=== PATIENT | female | born 1965 | race Hispanic/Latino ===

== ENCOUNTER 2017-08-19 08:48 | Day surgery (SDC) | payer MEDICARE ==
[2017-08-15 09:18] VITALS: BP 138/73
[2017-08-15 09:24] LABS: BASOPHILS % (AUTO) 0.9 % (0.0-5.0); EOSINOPHILS % (AUTO) 5.2 % (0.0-8.0); HEMATOCRIT 37.3 % (36-48); LYMPHOCYTES % (AUTO) 17.1 % (21.0-51.0); MEAN CORPUSCULAR HEMOGLOBIN 32.9 pg (27.0-33.0); MEAN CORPUSCULAR HGB CONC 34.6 g/dL (32.0-36.0); MEAN CORPUSCULAR VOLUME 95.3 fL (79-99); MONOCYTES % (AUTO) 5.1 % (3.0-13.0); NEUTROPHILS % (AUTO) 71.7 % (40.0-77.0); PLATELET COUNT (AUTO) 205 K/uL (130-400); RED BLOOD CELL COUNT(AUTO) 3.91 MIL/uL (4.00-5.50); RED CELL DISTRIBUTION WIDTH 13.9 % (11.0-15.5); WHITE BLOOD COUNT (AUTO) 12.9 K/uL (4.8-10.8)
[2017-08-15 09:34] LABS: POTASSIUM 3.2 mmol/L (3.5-5.1)
[2017-08-15 09:34] LABS: APPEARANCE,URINE Clear (CLEAR); BILIRUBIN,URINE Negative (NEGATIVE); COLOR,URINE Yellow (YELLOW); GLUCOSE, URINE (UA) Negative (NEGATIVE); KETONES,URINE Negative (NEGATIVE); LEUKOCYTE ESTERASE ,URINE Negative (NEGATIVE); NITRATE,URINE Negative (NEGATIVE); OCCULT BLOOD,URINE Negative (NEGATIVE); PROTEIN,URINE POS 2+ (NEGATIVE)
[2017-08-15 09:44] LABS: INR 0.97 (0.85-1.15); PARTIAL THROMBOPLASTIN TIME 27.2 SEC (26.3-35.5); PROTHROMBIN TIME 10.2 SEC (9.6-11.6)
[2017-08-15 09:46] LABS: BACTERIA,URINE Rare /HPF (None Seen); RBC,URINE None Seen /HPF (0-1); WBC,URINE 0-1 /HPF (0-1)
[~2017-08-19] VITALS: Ht 157.5 cm; Wt 94.5 kg
[2017-08-19] VITALS (10 sets, daily range): BP systolic 118–184; BP diastolic 66–87
[~2017-08-19 08:48] MED LIST: ACETAMINOPHEN 325 MG TAB PO PRN; AMLO5TAB2 PO; ASPI-1026 PO; DESVENLAFAXINE PO; HYDR25TA PO; LORA10TA7 PO; LOSA100T29 PO; METF500T6 PO; METOPROLOL ER PO; PRAV10TA39 PO; SODIUM CHLORIDE 0.9% 500ML 500 ML IV SCH; TOPI25TA42 PO
[2017-08-19 10:16] LABS: CREATININE 1.1 mg/dL (0.5-1.5); POTASSIUM 3.6 mmol/L (3.5-5.1)
[2017-08-19] MEDS ORDERED: SODIUM CHLORIDE 0.9% 1000ML 1,000 ML IV ONE (10:18)
[2017-08-19] MEDS ORDERED: NITROGLYCERIN 5 MG/ML 10 ML VIAL IV ONE (14:48)
[2017-08-19] MEDS ORDERED: HEPARIN SODIUM 1000UNIT/ML 10ML VIAL ONE (14:48)
[2017-08-19] MEDS ORDERED: IOHEXOL 350 MG/ML 100ML INFUS..BTL IV ONE (14:49)
[2017-08-19] MEDS ORDERED: IOHEXOL-350 50ML VIAL IV ONE (14:49)
[2017-08-19] MEDS ORDERED: LIDOCAINE HCL-MPF 2% 5ML VIAL ONE (15:00)
[2017-08-19] MEDS ORDERED: MIDAZOLAM HCL 1 MG/ML 2ML VIAL ONE (15:05)
[2017-08-19] MEDS ORDERED: MEPERIDINE-PF 25 MG/ML SYG ONE (15:05)
[2017-08-19] MEDS ORDERED: PANT40TA25 PO (15:29)
[2017-08-19] MEDS ORDERED: DEXTROSE 50%-WATER 50 ML DISP.SYRIN IV PRN (15:30)
[2017-08-19] MEDS ORDERED: SODIUM CHLORIDE 0.9% 10 ML VIAL IVP SCH (15:30)
[2017-08-19] MEDS ORDERED: GLUCAGON 1MG KIT 1 MG ML IM PRN (15:30)
[2017-08-19] MEDS ORDERED: INSULIN HUMULIN R 100 UNIT/ML 3ML SQ SCH (16:30)
== END 2017-08-19 20:00 | disposition home or self-care (01) ==
LOC: DAH 08:48
PROVIDERS: ATTEND Internal Medicine Cardiovascular Disease
DX: I20.8 Other forms of angina pectoris (principal); I11.0 Hypertensive heart disease with heart failure; I50.32 Chronic diastolic (congestive) heart failure; E11.9 Type 2 diabetes mellitus without complications; E78.5 Hyperlipidemia, unspecified; E66.9 Obesity, unspecified; F41.9 Anxiety disorder, unspecified; F32.9 Major depressive disorder, single episode, unspecified; Z79.899 Other long term (current) drug therapy; Z68.36 Body mass index [BMI] 36.0-36.9, adult; G45.9 Transient cerebral ischemic attack, unspecified
CPT/HCPCS: 36415 ×2; 71045; 80048 ×2; 81001; 82948; 85025; 85610; 85730; 93005; 93458; A4606; C1760; C1894; J1644; J2175; J2250; J3490 ×2; J7030; Q9965; Q9967 ×2; 99156; 99157

== ENCOUNTER 2019-12-22 10:25 | Emergency (ER) | payer OTHER, MEDICARE ==
[~2019-12-22 10:25] MED LIST changes: -ACETAMINOPHEN 325 MG TAB PO PRN; +AMLO-257 PO; -AMLO5TAB2 PO; -LOSA100T29 PO; +LOSA100T58 PO; +METF-444 PO; -METF500T6 PO; +PANT40TA55 PO; -SODIUM CHLORIDE 0.9% 500ML 500 ML IV SCH
[2019-12-22] MEDS ORDERED: ASPIRIN 325 MG TABLET PO ONE (10:26)
[2019-12-22] MEDS ORDERED: LIDOCAINE 5% TOPICAL PATCH TP ONE (10:26)
[2019-12-22 11:54] LABS: BASOPHILS % (AUTO) 0.4 % (0.0-5.0); EOSINOPHILS % (AUTO) 2.2 % (0.0-8.0); HEMATOCRIT 38.7 % (36-48); LYMPHOCYTES % (AUTO) 17.4 % (21.0-51.0); MEAN CORPUSCULAR HEMOGLOBIN 31.5 pg (27.0-33.0); MEAN CORPUSCULAR HGB CONC 33.6 g/dL (32.0-36.0); MEAN CORPUSCULAR VOLUME 93.7 fL (79-99); MONOCYTES % (AUTO) 4.5 % (3.0-13.0); NEUTROPHILS % (AUTO) 75.1 % (40.0-77.0); PLATELET COUNT (AUTO) 242 K/uL (130-400); RED BLOOD CELL COUNT(AUTO) 4.13 MIL/uL (4.00-5.50); RED CELL DISTRIBUTION WIDTH 12.8 % (11.0-15.5); WHITE BLOOD COUNT (AUTO) 9.1 K/uL (4.8-10.8)
[2019-12-22 12:05] LABS: CREATININE 1.3 mg/dL (0.5-1.5); POTASSIUM 3.1 mmol/L (3.5-5.1)
[2019-12-22 12:08] LABS: INR 0.99 (0.85-1.15); PARTIAL THROMBOPLASTIN TIME 25.9 SEC (26.3-35.5); PROTHROMBIN TIME 10.7 SEC (9.6-11.6)
[2019-12-22 12:09] LABS: ALBUMIN 3.7 g/dL (3.5-5.0); BILIRUBIN,TOTAL 0.3 mg/dL (0.2-1.0); TOTAL PROTEIN, SERUM 7.6 g/dL (6.0-8.3)
[2019-12-22] MEDS ORDERED: POTASSIUM CHLORIDE 20 MEQ ERTAB PO ONE (12:53)
[2019-12-22] MEDS ORDERED: IBUPROFEN 600 MG TABLET ONE (12:56)
== END 2019-12-22 16:03 | disposition home or self-care (01) ==
LOC: EDH 10:25
DX: S29.011A Strain of muscle and tendon of front wall of thorax, initial encounter (principal); X58.XXXA Exposure to other specified factors, initial encounter; Y93.89 Activity, other specified; Y92.89 Other specified places as the place of occurrence of the external cause; Y99.8 Other external cause status
CPT/HCPCS: 36415; 71045; 80053; 82550; 83690; 83880; 84484; 85025; 85610; 85730; 93005

== ENCOUNTER 2020-02-12 13:17 | Inpatient (IN) | payer OTHER, MEDICARE ==
[~2020-02-12] VITALS: Ht 167.6 cm; Wt 85.3 kg
[2020-02-12 13:48] LABS: ABG BASE EXCESS -4.7 mmol/L (-2.0-3.0); ABG HCO3 18.2 mmol/L (21.0-28.0); ABG OXYGEN SATURATION 91.2 % (95.0-99.0); ABG PCO2 29 mmHg (32-45)
[2020-02-12] MEDS ORDERED: ACETAMINOPHEN-CODEINE 300/30MG TAB ONE (14:14)
[2020-02-12] MEDS ORDERED: AZITHROMYCIN 250 MG TABLET PO ONE (14:14)
[2020-02-12] MEDS ORDERED: CEFTRIAXONE SODIUM 1 GM ONE (14:14)
[2020-02-12] MEDS ORDERED: DEXAMETHASONE SOD PHOSPHATE 10MG/ML 1ML VIAL ONE (14:14)
[2020-02-12] MEDS ORDERED: ASPIRIN 325 MG TABLET ONE (14:14)
[2020-02-12] MEDS ORDERED: SODIUM CHLORIDE 0.9% 500ML 500 ML IV ONE (14:15)
[2020-02-12] MEDS ORDERED: ALBUTEROL INHALER 90MCG/INH IH ONE (14:47)
[2020-02-12 14:58] LABS: BASOPHILS % (AUTO) 0.1 % (0.0-5.0); EOSINOPHILS % (AUTO) 0.3 % (0.0-8.0); HEMATOCRIT 38.2 % (36-48); LYMPHOCYTES % (AUTO) 7.5 % (21.0-51.0); MEAN CORPUSCULAR HEMOGLOBIN 31.7 pg (27.0-33.0); MEAN CORPUSCULAR HGB CONC 34.3 g/dL (32.0-36.0); MEAN CORPUSCULAR VOLUME 92.5 fL (79-99); MONOCYTES % (AUTO) 4.7 % (3.0-13.0); NEUTROPHILS % (AUTO) 86.8 % (40.0-77.0); PLATELET COUNT (AUTO) 170 K/uL (130-400); RED BLOOD CELL COUNT(AUTO) 4.13 MIL/uL (4.00-5.50); RED CELL DISTRIBUTION WIDTH 13.2 % (11.0-15.5); WHITE BLOOD COUNT (AUTO) 8.7 K/uL (4.8-10.8)
[2020-02-12 15:19] LABS: INR 0.96 (0.85-1.15); PROTHROMBIN TIME 10.3 SEC (9.6-11.6)
[2020-02-12 15:21] LABS: PARTIAL THROMBOPLASTIN TIME 31.6 SEC (26.3-35.5)
[2020-02-12 17:00] LABS: ALBUMIN 2.8 g/dL (3.5-5.0); BILIRUBIN,TOTAL 0.2 mg/dL (0.2-1.0); CREATININE 1.1 mg/dL (0.5-1.5); POTASSIUM 3.4 mmol/L (3.5-5.1); TOTAL PROTEIN, SERUM 7.1 g/dL (6.0-8.3)
[2020-02-13] MEDS ORDERED: AZITHROMYCIN 500MG+NS 250ML 250 ML IV ONE (01:50)
[2020-02-13] MEDS ORDERED: CEFTRIAXONE SODIUM 1 GM ONE (01:50)
[2020-02-13 03:58] LABS: BASOPHILS % (AUTO) 0.1 % (0.0-5.0); LYMPHOCYTES % (AUTO) 8.4 % (21.0-51.0); MEAN CORPUSCULAR HEMOGLOBIN 31.3 pg (27.0-33.0); MEAN CORPUSCULAR HGB CONC 33.9 g/dL (32.0-36.0); MEAN CORPUSCULAR VOLUME 92.3 fL (79-99); MONOCYTES % (AUTO) 3.6 % (3.0-13.0); NEUTROPHILS % (AUTO) 87.3 % (40.0-77.0); PLATELET COUNT (AUTO) 160 K/uL (130-400); RED CELL DISTRIBUTION WIDTH 13.2 % (11.0-15.5); WHITE BLOOD COUNT (AUTO) 8.7 K/uL (4.8-10.8)
[2020-02-13 04:09] LABS: CREATININE 1.2 mg/dL (0.5-1.5); POTASSIUM 4.1 mmol/L (3.5-5.1)
[2020-02-13 04:14] LABS: ALBUMIN 2.6 g/dL (3.5-5.0); BILIRUBIN,TOTAL 0.2 mg/dL (0.2-1.0); TOTAL PROTEIN, SERUM 6.9 g/dL (6.0-8.3)
[2020-02-13] MEDS ORDERED: ACETAMINOPHEN 325 MG TAB ONE (04:49)
[2020-02-13] MEDS ORDERED: ONDANSETRON HCL 4 MG/2 ML VIAL IVP PRN (08:15)
[2020-02-13] MEDS ORDERED: ALBUTEROL INHALER 90MCG/INH IH PRN (08:45)
[2020-02-13] MEDS ORDERED: PANTOPRAZOLE SODIUM 40 MG TABLET.DR ONE (08:55)
[2020-02-13] MEDS ORDERED: AMLODIPINE BESYLATE 5 MG TAB ONE (08:55)
[2020-02-13] MEDS ORDERED: LOSARTAN 50 MG TABLET ONE (08:56)
[2020-02-13] MEDS ORDERED: HYDROCHLOROTHIAZIDE 25 MG TABLET ONE (08:56)
[2020-02-13] MEDS ORDERED: LORATADINE 10 MG TABLET ONE (08:56)
[2020-02-13] MEDS: LORATADINE 10 MG TABLET PO SCH (09:00)
[2020-02-13] MEDS ORDERED: SIMVASTATIN 10 MG TABLET PO SCH (09:00)
[2020-02-13] MEDS: ASPIRIN 81MG TAB.CHEW PO SCH (09:00)
[2020-02-13] MEDS: TOPIRAMATE 25 MG TABLET PO SCH (09:00)
[2020-02-13] MEDS: ENOXAPARIN SODIUM 40 MG/0.4 ML SYRINGE SQ SCH ×2 (09:00→21:00)
[2020-02-13] MEDS: AMLODIPINE BESYLATE 5 MG TAB PO SCH (09:00)
[2020-02-13] MEDS: METOPROLOL TARTRATE 25 MG TAB PO SCH ×2 (09:00→21:00)
[2020-02-13] MEDS: LOSARTAN 100 MG TABLET PO SCH (09:00)
[2020-02-13] MEDS: PANTOPRAZOLE SODIUM 40 MG TABLET.DR PO SCH (09:00)
[2020-02-13] MEDS: HYDROCHLOROTHIAZIDE 25 MG TABLET PO SCH (09:00)
[2020-02-13] MEDS ORDERED: PHARMACY COMMUNICATION MISC SCH (09:30)
[2020-02-13 11:56] LABS: APPEARANCE,URINE Clear (CLEAR); BILIRUBIN,URINE Negative (NEGATIVE); COLOR,URINE Yellow (YELLOW); GLUCOSE, URINE (UA) Negative (NEGATIVE); KETONES,URINE Negative (NEGATIVE); LEUKOCYTE ESTERASE ,URINE Trace (NEGATIVE); NITRATE,URINE Negative (NEGATIVE); OCCULT BLOOD,URINE Negative (NEGATIVE); PH,URINE 6.5 (5.0-8.0); PROTEIN,URINE POS 2+ mg/dL (NEGATIVE); UROBILINOGEN,URINE 0.2 mg/dL (0.2-1.0)
[2020-02-13 12:12] LABS: BACTERIA,URINE Rare /HPF (None Seen); RBC,URINE 0-1 /HPF (0-1); SQUAMOUS EPITHELIAL CELL,UR Few /HPF (0-2); WBC,URINE 0-1 /HPF (0-1)
[2020-02-13 13:26] LABS: CRP QUANTITATIVE 169.1 mg/L (0.00-9.0)
[2020-02-13] MEDS ORDERED: COMPOUND IV REFRIGERATED 1 EACH IVSOLN MISC PRN (14:00)
[2020-02-13] MEDS ORDERED: REMDESIVIR (EUA) 520 200 MG in SODIUM CHLORIDE 0.9% 250 ML IV ONE (14:00)
[2020-02-13] MEDS ORDERED: ENOXAPARIN SODIUM 40 MG/0.4 ML SYRINGE SQ ONE (21:39)
[2020-02-13] MEDS ORDERED: DRONABINOL 2.5 MG CAP ONE (21:40)
[2020-02-13] MEDS ORDERED: METOPROLOL TARTRATE 25 MG TAB ONE (21:40)
[2020-02-14] MEDS ORDERED: ACETAMINOPHEN 325 MG TAB ONE (03:58)
[2020-02-14] MEDS ORDERED: PHARMACY COMMUNICATION MISC SCH (06:00)
[2020-02-14 07:33] LABS: ABG BASE EXCESS -2.1 mmol/L (-2.0-3.0); ABG OXYGEN SATURATION 95.2 % (95.0-99.0); ABG PCO2 36 mmHg (32-45)
[2020-02-14 07:37] LABS: HEMATOCRIT 36.3 % (36-48); MEAN CORPUSCULAR HEMOGLOBIN 30.7 pg (27.0-33.0); MEAN CORPUSCULAR HGB CONC 32.8 g/dL (32.0-36.0); MEAN CORPUSCULAR VOLUME 93.6 fL (79-99); RED BLOOD CELL COUNT(AUTO) 3.88 MIL/uL (4.00-5.50); RED CELL DISTRIBUTION WIDTH 13.1 % (11.0-15.5); WHITE BLOOD COUNT (AUTO) 13.2 K/uL (4.8-10.8)
[2020-02-14 07:52] LABS: POTASSIUM 3.2 mmol/L (3.5-5.1)
[2020-02-14] MEDS ORDERED: ASPIRIN 81MG TAB.CHEW ONE (07:54)
[2020-02-14] MEDS ORDERED: AMLODIPINE BESYLATE 5 MG TAB ONE (07:54)
[2020-02-14] MEDS ORDERED: DEXAMETHASONE SOD PHOSPHATE 10MG/ML 1ML VIAL ONE (07:54)
[2020-02-14] MEDS ORDERED: AZITHROMYCIN 500MG+NS 250ML 250 ML IV ONE (07:55)
[2020-02-14] MEDS ORDERED: ENOXAPARIN SODIUM 40 MG/0.4 ML SYRINGE SQ ONE (07:55)
[2020-02-14] MEDS ORDERED: CEFTRIAXONE SODIUM 1 GM ONE (07:55)
[2020-02-14] MEDS ORDERED: METOPROLOL TARTRATE 25 MG TAB ONE (07:56)
[2020-02-14] MEDS ORDERED: HYDROCHLOROTHIAZIDE 25 MG TABLET ONE (07:56)
[2020-02-14] MEDS ORDERED: LORATADINE 10 MG TABLET ONE (07:56)
[2020-02-14] MEDS ORDERED: LOSARTAN 50 MG TABLET ONE (07:56)
[2020-02-14] MEDS ORDERED: DRONABINOL 2.5 MG CAP ONE (07:57)
[2020-02-14] MEDS: DEXAMETHASONE SOD PHOSPHATE 4 MG/ML 1ML VIAL IVP SCH ×2 (08:15→21:36)
[2020-02-14] MEDS ORDERED: LIDOCAINE HCL-MPF 1% 2ML VIAL IV PRN (08:45)
[2020-02-14] MEDS ORDERED: POTASSIUM CHLORIDE 20 MEQ ERTAB PO PRN (08:45)
[2020-02-14] MEDS ORDERED: GLUCAGON 1MG KIT 1 MG ML IM PRN (08:45)
[2020-02-14] MEDS ORDERED: POTASSIUM CHLORIDE 10% ELIXIR 20 MEQ/15 ML UDCUP PO PRN (08:45)
[2020-02-14] MEDS ORDERED: DEXTROSE 50%-WATER 50 ML DISP.SYRIN IV PRN (08:45)
[2020-02-14] MEDS ORDERED: POTASSIUM CHLORIDE 20MEQ/100ML 100 ML IV PRN (08:45)
[2020-02-14] MEDS: LOSARTAN 100 MG TABLET PO SCH (09:00)
[2020-02-14] MEDS: AZITHROMYCIN 500MG+NS 250ML 250 ML IV SCH (09:00)
[2020-02-14] MEDS: DRONABINOL 2.5 MG CAP PO SCH ×3 (09:00→21:47)
[2020-02-14] MEDS: CEFTRIAXONE SODIUM 1 GM IVP SCH (09:00)
[2020-02-14] MEDS: TOPIRAMATE 25 MG TABLET PO SCH (09:00)
[2020-02-14] MEDS: METOPROLOL TARTRATE 25 MG TAB PO SCH ×2 (09:00→21:46)
[2020-02-14] MEDS: LORATADINE 10 MG TABLET PO SCH (09:00)
[2020-02-14] MEDS: AMLODIPINE BESYLATE 5 MG TAB PO SCH (09:00)
[2020-02-14] MEDS: ENOXAPARIN SODIUM 40 MG/0.4 ML SYRINGE SQ SCH ×2 (09:00→21:46)
[2020-02-14] MEDS: ASPIRIN 81MG TAB.CHEW PO SCH (09:00)
[2020-02-14] MEDS: HYDROCHLOROTHIAZIDE 25 MG TABLET PO SCH (09:00)
[2020-02-14] MEDS: PANTOPRAZOLE SODIUM 40 MG TABLET.DR PO SCH (09:00)
[2020-02-14 13:42] LABS: ALBUMIN 2.6 g/dL (3.5-5.0); BILIRUBIN,DIRECT 0.1 mg/dL (0.0-0.3); BILIRUBIN,TOTAL 0.3 mg/dL (0.2-1.0); TOTAL PROTEIN, SERUM 6.2 g/dL (6.0-8.3)
[2020-02-14] MEDS: REMDESIVIR (EUA) 520 100 MG in SODIUM CHLORIDE 0.9% 250 ML IV SCH (14:00)
[2020-02-14 18:10] VITALS: BP 130/78
[2020-02-14 19:58] VITALS: BP 121/77
[2020-02-14] MEDS: ACETAMINOPHEN 325 MG TAB PO PRN (22:36)
[2020-02-14 23:45] VITALS: BP 121/66
[2020-02-15 03:24] VITALS: BP 121/65
[2020-02-15] MEDS: GUAIFENESIN-DM 200/20 MG 10 ML PO PRN ×2 (05:00→13:03)
[2020-02-15 05:07] LABS: MEAN CORPUSCULAR HEMOGLOBIN 30.9 pg (27.0-33.0); MEAN CORPUSCULAR HGB CONC 33.8 g/dL (32.0-36.0); MEAN CORPUSCULAR VOLUME 91.4 fL (79-99); RED BLOOD CELL COUNT(AUTO) 4.05 MIL/uL (4.00-5.50); RED CELL DISTRIBUTION WIDTH 12.7 % (11.0-15.5); WHITE BLOOD COUNT (AUTO) 11.3 K/uL (4.8-10.8)
[2020-02-15 05:21] LABS: ABG BASE EXCESS -0.7 mmol/L (-2.0-3.0); ABG HCO3 23.2 mmol/L (21.0-28.0); ABG OXYGEN SATURATION 92.7 % (95.0-99.0); ABG PCO2 36 mmHg (32-45)
[2020-02-15 05:41] LABS: POTASSIUM 3.5 mmol/L (3.5-5.1)
[2020-02-15 08:54] VITALS: BP_SYST 112; BP_SYST 136; BP_DIAS 65; BP_DIAS 78
[2020-02-15] MEDS: CEFTRIAXONE SODIUM 1 GM IVP SCH (10:06)
[2020-02-15] MEDS: DRONABINOL 2.5 MG CAP PO SCH (10:06)
[2020-02-15] MEDS: DEXAMETHASONE SOD PHOSPHATE 4 MG/ML 1ML VIAL IVP SCH (10:06)
[2020-02-15] MEDS: AZITHROMYCIN 500MG+NS 250ML 250 ML IV SCH (10:06)
[2020-02-15] MEDS: LOSARTAN 100 MG TABLET PO SCH (10:07)
[2020-02-15] MEDS: LORATADINE 10 MG TABLET PO SCH (10:07)
[2020-02-15] MEDS: PANTOPRAZOLE SODIUM 40 MG TABLET.DR PO SCH (10:07)
[2020-02-15] MEDS: ASPIRIN 81MG TAB.CHEW PO SCH (10:07)
[2020-02-15] MEDS: AMLODIPINE BESYLATE 5 MG TAB PO SCH (10:07)
[2020-02-15] MEDS: HYDROCHLOROTHIAZIDE 25 MG TABLET PO SCH (10:07)
[2020-02-15] MEDS: METOPROLOL TARTRATE 25 MG TAB PO SCH ×2 (10:07→20:25)
[2020-02-15] MEDS: ENOXAPARIN SODIUM 40 MG/0.4 ML SYRINGE SQ SCH ×2 (10:08→20:36)
[2020-02-15] MEDS: TOPIRAMATE 25 MG TABLET PO SCH (12:59)
[2020-02-15 13:11] VITALS: BP 129/81
[2020-02-15] MEDS ORDERED: PHARMACY COMMUNICATION MISC SCH (14:00)
[2020-02-15 14:26] LABS: ALANINE AMINOTRANSFERASE 46 U/L (12-78); ALBUMIN 2.5 g/dL (3.5-5.0); ASPARTATE AMINOTRANSFERASE 39 U/L (10-37); BILIRUBIN,DIRECT < 0.1 mg/dL (0.0-0.3); BILIRUBIN,TOTAL 0.2 mg/dL (0.2-1.0); TOTAL PROTEIN, SERUM 7.1 g/dL (6.0-8.3)
[2020-02-15] MEDS: REMDESIVIR (EUA) 520 100 MG in SODIUM CHLORIDE 0.9% 250 ML IV SCH (15:43)
[2020-02-15 16:22] VITALS: BP 140/78
[2020-02-15] MEDS ORDERED: FUROSEMIDE 10 MG/ML 4ML VIAL IV SCH (19:20)
[2020-02-15 20:00] VITALS: BP 144/103
[2020-02-15] MEDS: ACETAMINOPHEN 325 MG TAB PO PRN (20:14)
[2020-02-16] VITALS (12 sets, daily range): BP systolic 120–144; BP diastolic 60–89
[2020-02-16] MEDS ORDERED: SODIUM CHLORIDE 0.9% 250 ML IV ONE (00:34)
[2020-02-16] MEDS ORDERED: FUROSEMIDE 10 MG/ML 4ML VIAL ONE (01:15)
[2020-02-16] MEDS: GUAIFENESIN-DM 200/20 MG 10 ML PO PRN (01:17)
[2020-02-16 04:31] LABS: BASOPHILS % (AUTO) 0.2 % (0.0-5.0); HEMATOCRIT 37.4 % (36-48); LYMPHOCYTES % (AUTO) 8.5 % (21.0-51.0); MEAN CORPUSCULAR HEMOGLOBIN 30.7 pg (27.0-33.0); MEAN CORPUSCULAR VOLUME 90.3 fL (79-99); NEUTROPHILS % (AUTO) 83.7 % (40.0-77.0); PLATELET COUNT (AUTO) 315 K/uL (130-400); RED BLOOD CELL COUNT(AUTO) 4.14 MIL/uL (4.00-5.50); RED CELL DISTRIBUTION WIDTH 12.4 % (11.0-15.5); WHITE BLOOD COUNT (AUTO) 17.7 K/uL (4.8-10.8)
[2020-02-16 04:47] LABS: ALBUMIN 2.8 g/dL (3.5-5.0); BILIRUBIN,TOTAL 0.3 mg/dL (0.2-1.0); MAGNESIUM 2.4 mg/dL (1.80-2.40); PHOSPHORUS 3.1 mg/dL (2.5-4.9); POTASSIUM 3.3 mmol/L (3.5-5.1); TOTAL PROTEIN, SERUM 7.7 g/dL (6.0-8.3)
[2020-02-16] MEDS: TOPIRAMATE 25 MG TABLET PO SCH (09:00)
[2020-02-16] MEDS: ASPIRIN 81MG TAB.CHEW PO SCH (10:11)
[2020-02-16] MEDS: METOPROLOL TARTRATE 25 MG TAB PO SCH ×2 (10:11→21:57)
[2020-02-16] MEDS: AZITHROMYCIN 500MG+NS 250ML 250 ML IV SCH (10:11)
[2020-02-16] MEDS: AMLODIPINE BESYLATE 5 MG TAB PO SCH (10:12)
[2020-02-16] MEDS: CEFTRIAXONE SODIUM 1 GM IVP SCH (10:12)
[2020-02-16] MEDS: LOSARTAN 100 MG TABLET PO SCH (10:12)
[2020-02-16] MEDS: LORATADINE 10 MG TABLET PO SCH (10:12)
[2020-02-16] MEDS: DEXAMETHASONE SOD PHOSPHATE 4 MG/ML 1ML VIAL IVP SCH (10:12)
[2020-02-16] MEDS: HYDROCHLOROTHIAZIDE 25 MG TABLET PO SCH (10:12)
[2020-02-16] MEDS: ENOXAPARIN SODIUM 40 MG/0.4 ML SYRINGE SQ SCH ×2 (10:13→21:58)
[2020-02-16] MEDS: PANTOPRAZOLE SODIUM 40 MG TABLET.DR PO SCH (10:16)
[2020-02-16] MEDS: FUROSEMIDE 10 MG/ML 2ML VIAL IV SCH (11:45)
[2020-02-16] MEDS: REMDESIVIR (EUA) 520 100 MG in SODIUM CHLORIDE 0.9% 250 ML IV SCH (13:51)
[2020-02-17] VITALS (8 sets, daily range): BP systolic 102–153; BP diastolic 60–92
[2020-02-17] MEDS: FUROSEMIDE 10 MG/ML 2ML VIAL IV SCH ×3 (00:30→23:45)
[2020-02-17 05:03] LABS: RED BLOOD CELL COUNT(AUTO) 4.28 MIL/uL (4.00-5.50); WHITE BLOOD COUNT (AUTO) 13.7 K/uL (4.8-10.8)
[2020-02-17 05:04] LABS: BASOPHILS % (AUTO) 0.5 % (0.0-5.0); EOSINOPHILS % (AUTO) 0.1 % (0.0-8.0); HEMATOCRIT 38.7 % (36-48); MEAN CORPUSCULAR HEMOGLOBIN 30.8 pg (27.0-33.0); MEAN CORPUSCULAR HGB CONC 34.1 g/dL (32.0-36.0); MEAN CORPUSCULAR VOLUME 90.4 fL (79-99); MONOCYTES % (AUTO) 8.1 % (3.0-13.0); NEUTROPHILS % (AUTO) 73.2 % (40.0-77.0); NUCLEATED RED BLOOD CELLS 0.1 % (0.0-0.19); PLATELET COUNT (AUTO) 343 K/uL (130-400); RED CELL DISTRIBUTION WIDTH 12.5 % (11.0-15.5)
[2020-02-17 05:39] LABS: ALBUMIN 2.6 g/dL (3.5-5.0); BILIRUBIN,TOTAL 0.3 mg/dL (0.2-1.0); MAGNESIUM 1.7 mg/dL (1.80-2.40); PHOSPHORUS 3.7 mg/dL (2.5-4.9); POTASSIUM 3.2 mmol/L (3.5-5.1); TOTAL PROTEIN, SERUM 7.2 g/dL (6.0-8.3)
[2020-02-17] MEDS: DEXAMETHASONE SOD PHOSPHATE 4 MG/ML 1ML VIAL IVP SCH (08:15)
[2020-02-17] MEDS: CEFTRIAXONE SODIUM 1 GM IVP SCH (10:28)
[2020-02-17] MEDS: AZITHROMYCIN 500MG+NS 250ML 250 ML IV SCH (10:29)
[2020-02-17] MEDS: AMLODIPINE BESYLATE 5 MG TAB PO SCH (10:29)
[2020-02-17] MEDS: LORATADINE 10 MG TABLET PO SCH (10:29)
[2020-02-17] MEDS: PANTOPRAZOLE SODIUM 40 MG TABLET.DR PO SCH (10:29)
[2020-02-17] MEDS: ASPIRIN 81MG TAB.CHEW PO SCH (10:29)
[2020-02-17] MEDS: METOPROLOL TARTRATE 25 MG TAB PO SCH ×2 (10:29→20:44)
[2020-02-17] MEDS: LOSARTAN 100 MG TABLET PO SCH (10:29)
[2020-02-17] MEDS: ENOXAPARIN SODIUM 40 MG/0.4 ML SYRINGE SQ SCH ×2 (10:30→20:45)
[2020-02-17] MEDS: TOPIRAMATE 25 MG TABLET PO SCH (10:30)
[2020-02-17] MEDS: REMDESIVIR (EUA) 520 100 MG in SODIUM CHLORIDE 0.9% 250 ML IV SCH (13:01)
[2020-02-17 17:46] LABS: INR 1.11 (0.85-1.15); PROTHROMBIN TIME 11.8 SEC (9.6-11.6)
[2020-02-18] VITALS (8 sets, daily range): BP systolic 109–157; BP diastolic 60–87
[2020-02-18 05:08] LABS: ABG BASE EXCESS 1.7 mmol/L (-2.0-3.0); ABG HCO3 24.4 mmol/L (21.0-28.0); ABG OXYGEN SATURATION 93.5 % (95.0-99.0); ABG PCO2 33 mmHg (32-45)
[2020-02-18 05:55] LABS: BASOPHILS % (AUTO) 0.8 % (0.0-5.0); EOSINOPHILS % (AUTO) 0.3 % (0.0-8.0); HEMATOCRIT 38.8 % (36-48); LYMPHOCYTES % (AUTO) 15.3 % (21.0-51.0); MEAN CORPUSCULAR HEMOGLOBIN 30.6 pg (27.0-33.0); MEAN CORPUSCULAR HGB CONC 34.3 g/dL (32.0-36.0); MEAN CORPUSCULAR VOLUME 89.4 fL (79-99); MONOCYTES % (AUTO) 7.7 % (3.0-13.0); NEUTROPHILS % (AUTO) 66.4 % (40.0-77.0); PLATELET COUNT (AUTO) 352 K/uL (130-400); RED BLOOD CELL COUNT(AUTO) 4.34 MIL/uL (4.00-5.50); RED CELL DISTRIBUTION WIDTH 12.2 % (11.0-15.5); WHITE BLOOD COUNT (AUTO) 12.9 K/uL (4.8-10.8)
[2020-02-18 06:12] LABS: ALBUMIN 2.7 g/dL (3.5-5.0); BILIRUBIN,TOTAL 0.3 mg/dL (0.2-1.0); MAGNESIUM 1.9 mg/dL (1.80-2.40); PHOSPHORUS 3.4 mg/dL (2.5-4.9); POTASSIUM 3.4 mmol/L (3.5-5.1); TOTAL PROTEIN, SERUM 7.1 g/dL (6.0-8.3)
[2020-02-18] MEDS: TOPIRAMATE 25 MG TABLET PO SCH (09:16)
[2020-02-18] MEDS: AMLODIPINE BESYLATE 5 MG TAB PO SCH (09:16)
[2020-02-18] MEDS: PANTOPRAZOLE SODIUM 40 MG TABLET.DR PO SCH (09:16)
[2020-02-18] MEDS: METOPROLOL TARTRATE 25 MG TAB PO SCH ×2 (09:17→20:45)
[2020-02-18] MEDS: ASPIRIN 81MG TAB.CHEW PO SCH (09:17)
[2020-02-18] MEDS: LOSARTAN 100 MG TABLET PO SCH (09:17)
[2020-02-18] MEDS: LORATADINE 10 MG TABLET PO SCH (09:17)
[2020-02-18] MEDS: ENOXAPARIN SODIUM 40 MG/0.4 ML SYRINGE SQ SCH ×2 (09:18→20:48)
[2020-02-18] MEDS: FUROSEMIDE 10 MG/ML 2ML VIAL IV SCH ×2 (10:42→23:03)
[2020-02-18] MEDS: DEXAMETHASONE SOD PHOSPHATE 4 MG/ML 1ML VIAL IVP SCH (10:42)
[2020-02-18] MEDS: GUAIFENESIN-DM 200/20 MG 10 ML PO PRN (14:39)
[2020-02-19 00:45] VITALS: BP 129/92
[2020-02-19 03:55] VITALS: BP 131/79
[2020-02-19 04:59] LABS: ABG BASE EXCESS -1.7 mmol/L (-2.0-3.0); ABG OXYGEN SATURATION 95.8 % (95.0-99.0); ABG PCO2 27 mmHg (32-45)
[2020-02-19 05:17] LABS: BASOPHILS % (AUTO) 0.6 % (0.0-5.0); EOSINOPHILS % (AUTO) 0.3 % (0.0-8.0); HEMATOCRIT 37.1 % (36-48); LYMPHOCYTES % (AUTO) 13.9 % (21.0-51.0); MEAN CORPUSCULAR HEMOGLOBIN 30.7 pg (27.0-33.0); MEAN CORPUSCULAR HGB CONC 34.8 g/dL (32.0-36.0); MEAN CORPUSCULAR VOLUME 88.3 fL (79-99); MONOCYTES % (AUTO) 6.3 % (3.0-13.0); NEUTROPHILS % (AUTO) 69.6 % (40.0-77.0); PLATELET COUNT (AUTO) 316 K/uL (130-400); RED CELL DISTRIBUTION WIDTH 12.1 % (11.0-15.5); WHITE BLOOD COUNT (AUTO) 16.1 K/uL (4.8-10.8)
[2020-02-19 05:35] LABS: ALBUMIN 2.7 g/dL (3.5-5.0); BILIRUBIN,TOTAL 0.3 mg/dL (0.2-1.0); MAGNESIUM 1.8 mg/dL (1.80-2.40); PHOSPHORUS 2.9 mg/dL (2.5-4.9); POTASSIUM 3.3 mmol/L (3.5-5.1)
[2020-02-19 07:00] VITALS: BP 134/90
[2020-02-19] MEDS: LORATADINE 10 MG TABLET PO SCH (08:58)
[2020-02-19] MEDS: DEXAMETHASONE SOD PHOSPHATE 4 MG/ML 1ML VIAL IVP SCH (08:58)
[2020-02-19] MEDS: ASPIRIN 81MG TAB.CHEW PO SCH (08:59)
[2020-02-19] MEDS: METOPROLOL TARTRATE 25 MG TAB PO SCH (08:59)
[2020-02-19] MEDS: LOSARTAN 100 MG TABLET PO SCH (08:59)
[2020-02-19] MEDS: PANTOPRAZOLE SODIUM 40 MG TABLET.DR PO SCH (08:59)
[2020-02-19] MEDS: AMLODIPINE BESYLATE 5 MG TAB PO SCH (08:59)
[2020-02-19] MEDS: ENOXAPARIN SODIUM 40 MG/0.4 ML SYRINGE SQ SCH (09:00)
[2020-02-19] MEDS: TOPIRAMATE 25 MG TABLET PO SCH (10:54)
[2020-02-19 11:00] VITALS: BP 129/74
[2020-02-19] MEDS ORDERED: DEXA6TAB PO (12:55)
[2020-02-19] MEDS: FUROSEMIDE 10 MG/ML 2ML VIAL IV SCH (13:51)
[2020-02-19 15:22] VITALS: BP 146/75
== END 2020-02-19 19:00 | disposition home or self-care (01) | DRG 177 ==
LOC: EDH 13:17 → EDHIP 23:15 → 2AH 02-14 18:52
PROVIDERS: ADMIT Internal Medicine Pulmonary Disease; ATTEND Internal Medicine Pulmonary Disease
PROC: XW13325 Transfusion of Convalescent Plasma (Nonautologous) into Peripheral Vein, Percutaneous Approach, New Technology Group 5 (ICD-10-PCS; 2020-02-16)
PROC: 5A0935A Assistance with Respiratory Ventilation, Less than 24 Consecutive Hours, High Flow/Velocity Cannula (ICD-10-PCS; 2020-02-16)
PROC: XW033E5 Introduction of Remdesivir Anti-infective into Peripheral Vein, Percutaneous Approach, New Technology Group 5 (ICD-10-PCS; principal; 2020-02-17)
PROC: 05HY33Z Insertion of Infusion Device into Upper Vein, Percutaneous Approach (ICD-10-PCS; 2020-02-18)
PROC: B54NZZA Ultrasonography of Left Upper Extremity Veins, Guidance (ICD-10-PCS; 2020-02-18)
DX: U07.1 COVID-19 (principal); J96.01 Acute respiratory failure with hypoxia; J12.89 Other viral pneumonia; E66.01 Morbid (severe) obesity due to excess calories; E11.9 Type 2 diabetes mellitus without complications; R63.3 Feeding difficulties; Z86.73 Personal history of transient ischemic attack (TIA), and cerebral infarction without residual deficits; Z79.899 Other long term (current) drug therapy; Z79.84 Long term (current) use of oral hypoglycemic drugs; Z79.82 Long term (current) use of aspirin; Z68.31 Body mass index [BMI] 31.0-31.9, adult
CPT/HCPCS: 36415; 36430; 36600; 71045; 71250; 80048; 80053; 80076; 81001; 82550; 82728; 82803; 82948; 83615; 83735; 84100; 84145; 84484; 85025; 85027; 85378; 85610; 85730; 86140; 86850; 86900; 86901; 86927; 87040; 87426; 93005; 94760; 99291; C1894; G0378; J0456; J0696; J1100; J1650; J1940; J7040; J7050; Q0167

== ENCOUNTER → 2021-04-10 | Outpatient (CLI) | payer OTHER, MEDICARE ==
[~2021-04-10] MED LIST changes: +DEXA6TAB PO; +REGADENOSON 0.4 MG/5 ML PF SYG IVP SCH
== END | disposition home or self-care (01) ==
LOC: SHCH 08:46
PROVIDERS: ATTEND Internal Medicine Cardiovascular Disease
DX: I10 Essential (primary) hypertension (principal); R07.9 Chest pain, unspecified
CPT/HCPCS: 78452; 93017; 96374; A9500 ×2; J2785

== ENCOUNTER → 2021-07-18 | Outpatient (CLI) | payer OTHER, MEDICARE ==
[~2021-07-18] MED LIST changes: -REGADENOSON 0.4 MG/5 ML PF SYG IVP SCH
== END | disposition home or self-care (01) ==
LOC: LAB 08:20
PROVIDERS: ATTEND Physician Assistant
DX: R06.00 Dyspnea, unspecified (principal)
CPT/HCPCS: 36415; 83880

== ENCOUNTER → 2021-07-25 | Outpatient (CLI) | payer OTHER, MEDICARE ==
[~2021-07-25] MED LIST changes: +ALBUTEROL 0.083% 2.5 MG/3 ML INH IH ONE
== END | disposition home or self-care (01) ==
LOC: RESP 09:10
PROVIDERS: ATTEND Internal Medicine Cardiovascular Disease
DX: R06.00 Dyspnea, unspecified (principal)
CPT/HCPCS: 94060

== ENCOUNTER → 2021-10-08 | Outpatient (CLI) | payer OTHER, MEDICARE ==
[~2021-10-08] MED LIST changes: -ALBUTEROL 0.083% 2.5 MG/3 ML INH IH ONE
[2021-10-08 12:36] LABS: ALBUMIN 3.7 g/dL (3.5-5.0); CREATININE 1.1 mg/dL (0.5-1.5); POTASSIUM 3.9 mmol/L (3.5-5.1); TOTAL PROTEIN, SERUM 7.3 g/dL (6.0-8.3)
== END | disposition home or self-care (01) ==
LOC: LAB 08:25
PROVIDERS: ATTEND Internal Medicine Cardiovascular Disease
DX: I10 Essential (primary) hypertension (principal)
CPT/HCPCS: 36415; 80053

== ENCOUNTER → 2021-10-24 | Outpatient (CLI) | payer OTHER, MEDICARE ==
[~2021-10-24] MED LIST changes: +IOHEXOL 350 MG/ML 100ML INFUS..BTL IV ONE; +METOPROLOL TARTRATE 1 MG/ML 5ML VIAL IV ONE
== END | disposition home or self-care (01) ==
LOC: RAH 08:27
PROVIDERS: ATTEND Internal Medicine Cardiovascular Disease
DX: R06.00 Dyspnea, unspecified (principal)
CPT/HCPCS: 75574; J3490; Q9967

== ENCOUNTER 2022-01-31 11:58 | Emergency (ER) | payer OTHER, MEDICARE ==
[~2022-01-31] VITALS: Ht 152.4 cm; Wt 133.8 kg
[~2022-01-31 11:58] MED LIST changes: -IOHEXOL 350 MG/ML 100ML INFUS..BTL IV ONE; -METOPROLOL TARTRATE 1 MG/ML 5ML VIAL IV ONE
[2022-01-31] MEDS ORDERED: LORAZEPAM 2 MG/ML 1 ML VIAL IM ONE (13:00)
[2022-01-31 13:03] LABS: BASOPHILS % (AUTO) 0.4 % (0.0-5.0); EOSINOPHILS % (AUTO) 1.3 % (0.0-8.0); HEMATOCRIT 38.3 % (36-48); LYMPHOCYTES % (AUTO) 14.8 % (21.0-51.0); MEAN CORPUSCULAR HEMOGLOBIN 30.8 pg (27.0-33.0); MEAN CORPUSCULAR HGB CONC 34.2 g/dL (32.0-36.0); MEAN CORPUSCULAR VOLUME 89.9 fL (79-99); MONOCYTES % (AUTO) 6.3 % (3.0-13.0); NEUTROPHILS % (AUTO) 76.8 % (40.0-77.0); PLATELET COUNT (AUTO) 259 K/uL (130-400); RED BLOOD CELL COUNT(AUTO) 4.26 MIL/uL (4.00-5.50); RED CELL DISTRIBUTION WIDTH 13.2 % (11.0-15.5); WHITE BLOOD COUNT (AUTO) 14.4 K/uL (4.8-10.8)
[2022-01-31 13:14] LABS: CREATININE 1.1 mg/dL (0.5-1.5); POTASSIUM 3.8 mmol/L (3.5-5.1)
[2022-01-31 13:18] LABS: ALBUMIN 3.7 g/dL (3.5-5.0); TOTAL PROTEIN, SERUM 7.4 g/dL (6.0-8.3)
[2022-01-31 13:19] LABS: APPEARANCE,URINE CLEAR (CLEAR); BILIRUBIN,URINE NEGATIVE (NEGATIVE); COLOR,URINE YELLOW (YELLOW); GLUCOSE, URINE (UA) NEGATIVE (NEGATIVE); KETONES,URINE 5 mg/dL (NEGATIVE); LEUKOCYTE ESTERASE ,URINE NEGATIVE Leu/uL (NEGATIVE); NITRATE,URINE NEGATIVE (NEGATIVE); OCCULT BLOOD,URINE NEGATIVE (NEGATIVE); PROTEIN,URINE 600 mg/dL (NEGATIVE)
[2022-01-31 13:21] LABS: MUCUS,URINE FEW LPF (None Seen); RBC,URINE 26-50 /HPF (0-1); SQUAMOUS EPITHELIAL CELL,UR MOD /HPF (0-2)
[2022-01-31] MEDS ORDERED: HYD25 PO (13:43)
[2022-01-31] MEDS ORDERED: AMOX1TAB16 PO (13:43)
[2022-01-31] MEDS ORDERED: AMOX/CLAV 875/125MG TAB PO ONE (14:00)
[2022-01-31 15:38] VITALS: BP 151/86
== END 2022-01-31 15:44 | disposition home or self-care (01) ==
LOC: EDH 11:58
DX: F41.9 Anxiety disorder, unspecified (principal); R47.9 Unspecified speech disturbances; E11.9 Type 2 diabetes mellitus without complications; I10 Essential (primary) hypertension; J01.90 Acute sinusitis, unspecified; Z79.899 Other long term (current) drug therapy
CPT/HCPCS: 99284; 70450; 80053; 85025; 81001; 36415; 96372; J2060

== ENCOUNTER 2022-12-23 19:57 | Emergency (ER) | payer OTHER, MEDICARE ==
[~2022-12-23] VITALS: Ht 154.9 cm; Wt 86.2 kg
[~2022-12-23 19:57] MED LIST changes: +AMOX1TAB16 PO; +HYD25 PO; -LOSA100T58 PO; +LOSA100T59 PO
[2022-12-23 20:16] VITALS: BP 179/90; PULSE 84; RESP 20
[2022-12-23] MEDS ORDERED: MUPI22OI2 TP (21:25)
[2022-12-23] MEDS ORDERED: CEPH500C2 PO (21:25)
[2022-12-23] MEDS ORDERED: NAPR-1023 PO (21:25)
[2022-12-23] MEDS ORDERED: TETANUS/DIPHTHERIA TOXOID [ADULT] 0.5 ML VIAL IM ONE (21:30)
== END 2022-12-23 21:41 | disposition home or self-care (01) ==
LOC: EDH 19:57
DX: T16.2XXA Foreign body in left ear, initial encounter (principal); E11.9 Type 2 diabetes mellitus without complications; E78.00 Pure hypercholesterolemia, unspecified; I10 Essential (primary) hypertension; F41.9 Anxiety disorder, unspecified; Z79.52 Long term (current) use of systemic steroids; Z79.82 Long term (current) use of aspirin; Z79.84 Long term (current) use of oral hypoglycemic drugs; Z79.899 Other long term (current) drug therapy; Z90.49 Acquired absence of other specified parts of digestive tract
CPT/HCPCS: 90471; 90714